=== PATIENT | male | born 1995 | race Caucasian/White ===

== ENCOUNTER 2017-03-22 17:16 | Emergency (ER) | payer SELFPAY ==
[~2017-03-22] VITALS: Ht 188 cm; Wt 89.3 kg
[2017-03-22 17:59] VITALS: Ht 188 cm; Wt 89.3 kg
[2017-03-22 23:03] VITALS: BP 110/70
== END 2017-03-22 23:03 | disposition home or self-care (01) ==
LOC: ED 17:16
DX: M25.561 Pain in right knee (principal)